=== PATIENT | female | born 1960 | race Caucasian/White ===

== ENCOUNTER → 2016-03-30 | Outpatient (CLI) | payer BC ==
--- NOTE | 2016-03-30 17:02 | DIAGNOSTIC IMAGING REPORT ---
LEFT KNEE 3 VIEWS HISTORY: Left knee pain. COMPARISON: None. FINDINGS: There is no fracture or dislocation. Soft tissues are unremarkable. No radiopaque foreign bodies. No significant knee effusion. Mild cartilage space narrowing within the medial compartment consistent with degenerative change. IMPRESSION: No fractures. Electronically signed by: Ceasar Ruiz M.D. 03/30/2016 5:00 PM Dictated Date/Time: 03/30/2016 4:58 PM
--- NOTE | 2016-03-30 17:12 | DIAGNOSTIC IMAGING REPORT ---
LEFT LOWER EXTREMITY VENOUS DOPPLER HISTORY: Left knee pain. COMPARISON STUDY: Left leg venous Doppler 09/30/2014. FINDINGS: There is normal compressibility, flow, and augmentation within the left lower extremity deep venous system. IMPRESSION: No DVT within the left lower extremity. Electronically signed by: Ceasar Ruiz M.D. 03/30/2016 5:10 PM Dictated Date/Time: 03/30/2016 5:10 PM
== END | disposition home or self-care (01) ==
LOC: C.RAD 16:17
PROVIDERS: ATTEND Internal Medicine
DX: M25.562 Pain in left knee (principal); M79.662 Pain in left lower leg

== ENCOUNTER → 2016-11-25 | Outpatient (CLI) | payer BC ==
[2016-11-25 10:13] LABS: BLOOD UREA NITROGEN 14 mg/dl (7-18); CREATININE 0.75 mg/dl (0.60-1.20); GLUCOSE,FASTING 98 mg/dl (70-99)
[2016-11-25 10:14] LABS: ALT/SGPT 34 U/L (12-78); BUN/CREATININE RATIO 19.2 (10-20); CARBON DIOXIDE 31 mmol/L (21-32); CHLORIDE 103 mmol/L (98-107); CHOLESTEROL 148 mg/dl (0-200); POTASSIUM 4.1 mmol/L (3.5-5.1); SODIUM 138 mmol/L (136-145); TRIGLYCERIDES 105 mg/dl (0-150); VERY LOW DENSITY LIPOPROT CALC 21 mg/dl
[2016-11-25 10:24] LABS: ALKALINE PHOSPHATASE 95 U/L (45-117); AST/SGOT 18 U/L (15-37); CHOLESTEROL/HDL RATIO 2.9; HDL CHOLESTEROL 51 mg/dl; LDL CHOLESTEROL CALCULATED 76 mg/dl
== END | disposition home or self-care (01) ==
LOC: C.LAB 09:22
PROVIDERS: ATTEND Physician Assistant
DX: Z00.00 Encounter for general adult medical examination without abnormal findings (principal); E03.9 Hypothyroidism, unspecified; E06.3 Autoimmune thyroiditis

== ENCOUNTER → 2016-12-18 | Outpatient (CLI) | payer BC | END | disposition home or self-care (01) | LOC: C.LABSPEC 14:24 | PROVIDERS: ATTEND Physician Assistant | DX: J02.9 Acute pharyngitis, unspecified (principal) ==

== ENCOUNTER → 2017-05-30 | Outpatient (CLI) | payer BC ==
[2017-05-30 13:52] LABS: BLOOD UREA NITROGEN 18 mg/dl (7-18); CALCIUM 9.2 mg/dl (8.5-10.1); CARBON DIOXIDE 31 mmol/L (21-32); CHOLESTEROL 162 mg/dl (0-200); CREATININE 0.77 mg/dl (0.60-1.20); GLUCOSE,FASTING 105 mg/dl (70-99); POTASSIUM 4.3 mmol/L (3.5-5.1); SODIUM 138 mmol/L (136-145)
[2017-05-30 14:02] LABS: LDL CHOLESTEROL CALCULATED 104 mg/dl
== END | disposition home or self-care (01) ==
LOC: C.LABPBG 09:40
PROVIDERS: ATTEND Physician Assistant
DX: Z00.00 Encounter for general adult medical examination without abnormal findings (principal); E06.3 Autoimmune thyroiditis; E03.9 Hypothyroidism, unspecified; E66.01 Morbid (severe) obesity due to excess calories

== ENCOUNTER → 2017-06-18 | Outpatient (CLI) | payer BC | END | disposition home or self-care (01) | LOC: C.LABSPEC 14:04 | PROVIDERS: ATTEND Physician Assistant | DX: M54.5 Low back pain (principal) ==

== ENCOUNTER → 2017-06-22 | Outpatient (CLI) | payer BC ==
--- NOTE | 2017-06-22 13:56 | DIAGNOSTIC IMAGING REPORT ---
ULTRASOUND KIDNEYS AND BLADDER CLINICAL HISTORY: Low back pain. COMPARISON STUDY: No priors. TECHNIQUE: Real-time, grayscale, and color flow sonography of the kidneys and bladder is performed. Images are reviewed in the transverse and longitudinal planes. The examination is degraded by large body habitus. FINDINGS: Kidneys: The kidneys demonstrate mild cortical atrophy. The right kidney measures 12.3 x 4.7 x 6.6 cm and the left kidney measures 14.3 x 5.7 x 6.3 cm. A duplicated right renal collecting system is suggested. There is no hydronephrosis. Right renal cysts are noted and measure up to 2.3 cm. These may be parapelvic in location. No shadowing renal calculi are identified. There is no sonographic evidence of contour deforming renal mass lesion. No perinephric fluid is identified. Bladder: The partially decompressed bladder is grossly normal in appearance. Bilateral ureteral jets were seen. Upper abdomen: Survey images of the liver show evidence of hepatomegaly and hepatic steatosis. IMPRESSION: 1. The kidneys demonstrate mild cortical atrophy and are without hydronephrosis. 2. The bladder is grossly unremarkable. Both ureteral jets were seen. 3. Hepatomegaly and hepatic steatosis. Electronically signed by: Russel Pagan M.D. 06/22/2017 1:54 PM Dictated Date/Time: 06/22/2017 1:52 PM
== END | disposition home or self-care (01) ==
LOC: C.ULTR 13:09
PROVIDERS: ATTEND Physician Assistant
DX: M54.5 Low back pain (principal); R16.0 Hepatomegaly, not elsewhere classified; K76.0 Fatty (change of) liver, not elsewhere classified

== ENCOUNTER → 2017-07-02 | Outpatient (CLI) | payer BC ==
--- NOTE | 2017-07-03 07:39 | MAMMOGRAPHY REPORT ---
BILATERAL DIGITAL SCREENING MAMMOGRAM TOMOSYNTHESIS WITH CAD: 07/02/2017 CLINICAL HISTORY: Routine screening. Patient has no complaints. TECHNIQUE: Breast tomosynthesis in addition to standard 2D mammography was performed. Tiling was pe rformed to ensure inclusion of all the breast tissue. Current study was also evaluated with a Comput er Aided Detection (CAD) system. COMPARISON: Comparison is made to exams dated: 02/05/2015 mammogram, 05/01/2011 mammogram, 05/29/2009 mammogram, and 07/29/2003 mammogram. BREAST COMPOSITION: The tissue of both breasts is almost entirely fatty. FINDINGS: No suspicious mass, architectural distortion or cluster of microcalcifications is seen. IMPRESSION: ACR BI-RADS CATEGORY 1: NEGATIVE There is no mammographic evidence of malignancy. A 1 year screening mammogram is recommended. The pa tient will receive written notification of the results. Approximately 10% of breast cancers are not detected with mammography. A negative mammographic report should not delay biopsy if a clinically suggestive mass is present. Mee Davenport M.D. ay/:07/02/2017 16:35:30 Suspect Artist Supervisor: Cindy GARCIA)(M), [facility] letter sent: Normal 1/2 BI-RADS Code: ACR BI-RADS Category 1: Negative
== END | disposition home or self-care (01) ==
LOC: C.MAMM 14:25
PROVIDERS: ATTEND Physician Assistant
DX: Z12.31 Encounter for screening mammogram for malignant neoplasm of breast (principal)